=== PATIENT | male | born 1980 | race Caucasian/White ===

== ENCOUNTER 2017-10-19 06:42 | Day surgery (SDC) | payer BC ==
[2017-10-19] MEDS ORDERED: LIDOCAINE 1% (MPF) 30 ML INJ (11:33)
[2017-10-19] MEDS ORDERED: MIDAZOLAM 1 MG/ML 2 ML INJ (11:54)
[2017-10-19] MEDS ORDERED: PROPOFOL 20 ML (11:54)
[2017-10-19] MEDS ORDERED: ROCURONIUM 50 MG INJ (11:54)
[2017-10-19] MEDS ORDERED: ONDANSETRON 4 MG INJ (11:55)
[2017-10-19] MEDS ORDERED: METOCLOPRAMIDE 10 MG INJ (11:55)
[2017-10-19] MEDS ORDERED: CEFAZOLIN 1 GM INJ (12:08)
[2017-10-19] MEDS: LIDOCAINE 1%/EPI 30 ML INJ (12:27)
[2017-10-19] MEDS: COCAINE 4% 4 ML TOP (12:27)
[2017-10-19] MEDS: BACITRACIN/POLYMYXIN 28.35 GM OINT TOP (12:28)
[2017-10-19] MEDS ORDERED: HYDROmorphONE 2 MG/ML SYG (13:22)
[2017-10-19] MEDS ORDERED: NEOSTIGMINE 3 MG/3 ML SYRINGE (13:22)
[2017-10-19] MEDS ORDERED: HYDROmorphONE (0.2 MG/ML) 10ML SYG IV ×2 (13:30)
[2017-10-19] MEDS ORDERED: ONDANSETRON 4 MG INJ IV (13:30)
[2017-10-19] MEDS: HYDROmorphONE (0.2 MG/ML) 10ML SYG IV (14:01)
[2017-10-19] MEDS: OXYCODONE/ACETAMINOPHEN (5/325) TAB PO ×2 (14:42→14:43)
== END 2017-10-19 15:05 | disposition home or self-care (01) ==
LOC: SDS 06:42
DX: J34.2 Deviated nasal septum (principal); J34.3 Hypertrophy of nasal turbinates; J34.89 Other specified disorders of nose and nasal sinuses
CPT/HCPCS: 30140; 88300